=== PATIENT | male | born 1965 | race Caucasian/White ===

== ENCOUNTER 2017-12-23 11:41 | Inpatient (IN) | payer BC, OTHER ==
--- NOTE | 2017-12-23 12:17 | ER Document Report ---
ED General - General Chief Complaint: Dizziness Stated Complaint: BLOOD PRESSUER ISSUE Time Seen by Provider: 12/23/17 12:04 Mode of Arrival: Ambulatory Information source: Patient, Dr. Office Notes: 52 yr old male hx of htn who does not take his lisinopril presents with complaints of headache and high blood pressure . pt denies any fevers or chills , denies any nausea vomiting. pt notes that he was given 0.2 mg of clonidine and bp went from 208/124 TRAVEL OUTSIDE OF THE [place] IN LAST 30 DAYS: No - HPI Onset: Just prior to arrival Onset/Duration: Sudden Quality of pain: No pain Severity: Mild Pain Level: Denies Associated symptoms: Headache Exacerbated by: Denies Relieved by: Other Similar symptoms previously: Yes Recently seen / treated by doctor: Yes - Related Data Allergies/Adverse Reactions: diphenhydramine HCl [From Benadryl] Allergy (Verified 12/23/17 11:42) swelling and rash Past Medical History - Social History Smoking Status: Never Smoker Cigarette use (# per day): No Chew tobacco use (# tins/day): No Smoking Education Provided: No Family History: Hypertension - Past Medical History Cardiac Medical History: Reports: Hx Hypertension Traumatic Medical History: Reports: Hx Fractures - Right tib-fib fracture treated with a cast several years ago. Review of Systems - Review of Systems Notes: REVIEW OF SYSTEMS: CONSTITUTIONAL : Denies fever, chills, or sweats. Denies recent illness. EENT: Denies eye, ear, throat, or mouth pain or symptoms. Denies nasal or sinus congestion or discharge. Denies throat, tongue, or mouth swelling or difficulty swallowing. CARDIOVASCULAR: Denies chest pain. Denies palpitations or racing or irregular heart beat. Denies ankle edema. RESPIRATORY: Denies cough, cold, or chest congestion. Denies shortness of breath, difficulty breathing, or wheezing. GASTROINTESTINAL: Denies abdominal pain or distention. Denies nausea, vomiting , or diarrhea. Denies blood in vomitus, stools, or per rectum. Denies black, tarry stools. Denies constipation. GENITOURINARY: Denies difficulty urinating, painful urination, burning, frequency, blood in urine, or discharge. MUSCULOSKELETAL: Denies back or neck pain or stiffness. Denies joint pain or swelling. SKIN: Denies rash, lesions or sores. HEMATOLOGIC : Denies easy bruising or bleeding. LYMPHATIC: Denies swollen, enlarged glands. NEUROLOGICAL: admits to headache PSYCHIATRIC: Denies anxiety or stress. Denies depression, suicidal ideation, or homicidal ideation. ALL OTHER SYSTEMS REVIEWED AND NEGATIVE. Dictation was performed using [employer] voice recognition software PHYSICAL EXAMINATION: GENERAL: Well-appearing, well-nourished and in no acute distress. bp slightly elevated 148/80 HEAD: Atraumatic, normocephalic. EYES: Pupils equal round and reactive to light, extraocular movements intact, sclera anicteric, conjunctiva are normal. ENT: Nares patent, oropharynx clear without exudates. Moist mucous membranes. NECK: Normal range of motion, supple without lymphadenopathy LUNGS: Breath sounds clear to auscultation bilaterally and equal. No wheezes rales or rhonchi. HEART: Regular rate and rhythm without murmurs ABDOMEN: Soft, nontender, nondistended abdomen. No guarding, no rebound. No masses appreciated. Musculoskeletal: Normal range of motion, no pitting or edema. No cyanosis. NEUROLOGICAL: Cranial nerves grossly intact. Normal speech, normal gait. Normal sensory, motor exams PSYCH: Normal mood, normal affect. SKIN: Warm, Dry, normal turgor, no rashes or lesions noted. Physical Exam - Vital signs Vitals: Temp Pulse Resp BP Pulse Ox 97.7 F 61 16 147/80 H 99 12/23/17 11:57 12/23/17 11:57 12/23/17 11:57 12/23/17 11:57 12/23/17 11:57 Course - Re-evaluation Re-evalutation: 12/23/17 12:16 Patient has been instructed that he must continue taking his lisinopril as prescribed, I will perform CT head given the symptoms are much improved, lab work pending to determine if there is been any long-term issues secondary to his hypertension he will be given ophthalmology follow-up 12/23/17 12:55 Patient noted to have a subacute CVA will admit ot hospitaist 12/23/17 12:57 - Vital Signs Vital signs: Temp Pulse Resp BP Pulse Ox 97.7 F 61 16 147/80 H 99 12/23/17 11:57 12/23/17 11:57 12/23/17 11:57 07/03/18 11:57 12/23/17 11:57 - Laboratory Result Diagrams: 12/23/17 12:18 12/23/17 12:18 Laboratory results interpreted by me: 12/23/17 12:18 WBC 12.3 H Seg Neutrophils % 78.3 H Absolute Neutrophils 9.6 H Discharge - Discharge Clinical Impression: CVA (cerebral vascular accident) Qualifiers: CVA mechanism: unspecified Qualified Code(s): I63.9 - Cerebral infarction, unspecified Condition: Stable Disposition: ADMITTED OBSERVATION Admitting Provider: Hospitalist Unit Admitted: IMCU Referrals: JENIFER RODRIGUEZ FNP-C [Primary Care Provider] - Follow up as needed
[2017-12-23 12:42] LABS: ABSOLUTE BASOPHILS # (AUTO) 0.1 10^3/uL (0.0-0.2); ABSOLUTE EOSINOPHILS # (AUTO) 0.1 10^3/uL (0.0-0.6); ABSOLUTE MONOCYTES (AUTO) 0.5 10^3/uL (0.1-1.4); ABSOLUTE NEUT (AUTO) 9.6 10^3/uL (1.7-8.2); BASOPHILS % (AUTO) 0.8 % (0-2); EOSINOPHILS % (AUTO) 0.6 % (0-6); HEMATOCRIT 44.1 % (37.9-51.0); HEMOGLOBIN 15.3 g/dL (13.5-17.0); LYMPHOCYTES % (AUTO) 16.3 % (13-45); MEAN CORPUSCULAR HEMOGLOBIN 30.8 pg (27.0-33.4); MEAN CORPUSCULAR HGB CONC 34.7 g/dL (32.0-36.0); MEAN CORPUSCULAR VOLUME 89 fl (80-97); PLATELET COUNT 238 10^3/uL (150-450); RED BLOOD COUNT 4.96 10^6/uL (4.35-5.55); RED CELL DISTRIBUTION WIDTH 12.8 % (11.5-14.0); SEGMENTED NEUTROPHILS % (AUTO) 78.3 % (42-78); TOTAL CELLS COUNTED % (AUTO) 100 %; WHITE BLOOD COUNT 12.3 10^3/uL (4.0-10.5)
--- NOTE | 2017-12-23 12:53 | RADIOLOGY REPORT (SQ) ---
EXAM DESCRIPTION: CT HEAD WITHOUT COMPLETED DATE/TIME: 12/23/2017 12:38 pm REASON FOR STUDY: hypertension COMPARISON: None. TECHNIQUE: Axial images acquired through the brain without intravenous contrast. Images reviewed wi th bone, brain and subdural windows. Additional sagittal and coronal reconstructions were generated. Images stored on PACS. All CT scanners at this facility use dose modulation, iterative reconstruction, and/or weight based d osing when appropriate to reduce radiation dose to as low as reasonably achievable (ALARA). [facility]: Dose Right [facility]: CareDose [facility]: Dose Right [facility]: Teradose 4D [facility]: [employer] Systems RADIATION DOSE: CT Rad equipment meets quality standard of care and radiation dose reduction techniq ues were employed. CTDIvol: 53.2 mGy. DLP: 991 mGy-cm. mGy. LIMITATIONS: None. FINDINGS: VENTRICLES: Normal size and contour. CEREBRUM: Low attenuation in the inferior left temporal lobe and occipital lobe, with adjacent sulcal effacement, likely a subacute left [employer] infarct. Remainder of the cerebrum is otherwise unremarkable. CEREBELLUM: No masses. No hemorrhage. No alteration of density. No evidence for acute infarction. EXTRAAXIAL SPACES: No fluid collections. No masses. ORBITS AND GLOBE: No intra- or extraconal masses. Normal contour of globe without masses. CALVARIUM: No fracture. PARANASAL SINUSES: Diffuse inflammatory changes in the paranasal sinuses with multifocal mucous membr ane thickening an near complete opacification of the left maxillary sinus. SOFT TISSUES: No mass or hematoma. OTHER: No other significant finding. IMPRESSION: Subacute nonhemorrhagic infarct in the left temporal and occipital lobe, along the left posterior cerebral artery distribution. EVIDENCE OF ACUTE STROKE: NO. COMMENT: Quality ID # [id number]: Final reports with documentation of one or more dose reduction techniques (e.g., Automated exposure control, adjustment of the mA and/or kV according to patient size, use of iterative reconstruction technique) TECHNICAL DOCUMENTATION: JOB ID: [id number] [employer]- All Rights Reserved Reading location - IP/workstation name: [email or web address]
[2017-12-23 12:58] LABS: APPEARANCE,URINE CLEAR; BILIRUBIN,URINE NEGATIVE (NEGATIVE); COLOR,URINE STRAW; GLUCOSE, URINE >=500 mg/dL (NEGATIVE); KETONES,URINE NEGATIVE (NEGATIVE); LEUKOCYTE ESTERASE,URINE NEGATIVE (NEGATIVE); NITRITE,URINE NEGATIVE (NEGATIVE); PROTEIN,URINE 100 mg/dL (NEGATIVE); URINE SPECIFIC GRAVITY 1.029; UROBILINOGEN,URINE NEGATIVE mg/dL (<2.0)
[2017-12-23 13:09] LABS: ALANINE AMINOTRANSFERASE 24 U/L (21-72); ALBUMIN 4.1 g/dL (3.5-5.0); ALKALINE PHOSPHATASE 140 U/L (38-126); ANION GAP 12 (5-19); ASPARTATE AMINO TRANSFERASE 16 U/L (17-59); BILIRUBIN,DIRECT 0.4 mg/dL (0.0-0.4); BILIRUBIN,TOTAL 0.6 mg/dL (0.2-1.3); BLOOD UREA NITROGEN 16 mg/dL (7-20); CALCIUM 9.2 mg/dL (8.4-10.2); CARBON DIOXIDE 30 mmol/L (22-30); CHLORIDE 90 mmol/L (98-107); POTASSIUM 4.8 mmol/L (3.6-5.0); SODIUM 132.2 mmol/L (137-145)
[2017-12-23 13:38] LABS: GLUCOSE 585 mg/dL (75-110)
[2017-12-23] MEDS ORDERED: GLUCAGON,HUMAN RECOMB 1 MG INJ IM PRN (14:26)
[2017-12-23] MEDS ORDERED: DEXTROSE 50%-WATER 25 GM/50 ML DISP.SYRIN IV PRN ×2 (14:26)
[2017-12-23] MEDS ORDERED: LABETALOL HCL INJ 20 MG/4 ML DISP.SYRIN IV PRN (14:26)
[2017-12-23] MEDS ORDERED: DEXTROSE 40% GEL 15 GM TUBE PO PRN ×2 (14:26)
--- NOTE | 2017-12-23 15:28 | PDOC H&P ---
History of Present Illness Admission Date/PCP: 12/23/17 14:26 JENIFER RODRIGUEZ, GRADUATE TEACH[employer] EDUCATION-C History of Present Illness: ADRIÁN ALVA is a 52 year old male who says about 3 days ago he began to notice some trouble with his balance that was transient, and he also started noticing some problems with the vision of his right side. He said it was like he was seeing something in his visual field that was moving off to his right and he could track it with his eyes and watch it as it went. 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 He has also been complaining mainly of some sinus congestion and said he feels like if it breaks up all his problems would go away. He decided to go see his primary care provider today and apparently he had a blood pressure with a systolic over 200 and was given some clonidine and EMS was called to bring him to the hospital. He denies any other complaints. He has not had any slurring of his speech, no dysarthria, no trouble chewing or swallowing, no headache, no trouble walking, no trouble with using his hands or with sensation, no facial droop. He said he quit smoking about a month ago. He had a head CT done on the ER which showed a subacute stroke. It also showed that he had a blood sugar of almost 600. He denies any knowledge of being diabetic. He says he does drink a lot of soda. Past Medical History Cardiac Medical History: Reports: Hypertension Social History Information Source: Patient Occupation: vending route driver Smoking Status: Former Smoker - Quit 1 month ago Family History Family History: Reviewed & Not Pertinent, Hypertension Parental Family History Reviewed: No - Noncontributory Children Family History Reviewed: NA - Noncontributory Sibling(s) Family History Reviewed.: NA - Noncontributory Medication/Allergy Home Medications: Lisinopril [Prinivil 10 mg Tablet] 10 mg PO DAILY 12/23/17 Allergies/Adverse Reactions: diphenhydramine HCl [From Benadryl] Allergy (Verified 12/23/17 11:42) swelling and rash Review of Systems All systems: reviewed and no additional remarkable complaints except as stated - A 10 point review of systems was conducted with the patient was negative except as noted above in HPI Physical Exam Vital Signs: Temp Pulse Resp BP Pulse Ox 97.7 F 64 20 176/87 H 96 12/23/17 14:13 12/23/17 14:13 12/23/17 14:31 12/23/17 14:31 12/23/17 14:31 General appearance: PRESENT: no acute distress, cooperative, well-developed, well-nourished Head exam: PRESENT: atraumatic, normocephalic Eye exam: PRESENT: conjunctiva pink, EOMI, PERRLA. ABSENT: scleral icterus Ear exam: PRESENT: normal external ear exam Mouth exam: PRESENT: moist, neck supple, tongue midline Throat exam: ABSENT: post pharyngeal erythema, tonsillar erythema, tonsillar exudate, tonsillogmegaly Neck exam: ABSENT: carotid bruit, JVD, lymphadenopathy, thyromegaly Respiratory exam: PRESENT: clear to auscultation marco, unlabored. ABSENT: rales , rhonchi, wheezes Cardiovascular exam: PRESENT: RRR. ABSENT: diastolic murmur, rubs, systolic murmur Pulses: PRESENT: normal carotid pulses, normal radial pulses Vascular exam: PRESENT: normal capillary refill GI/Abdominal exam: PRESENT: normal bowel sounds, soft. ABSENT: distended, guarding, mass, organolmegaly, rebound, tenderness Rectal exam: PRESENT: deferred Extremities exam: PRESENT: full ROM. ABSENT: clubbing, pedal edema Musculoskeletal exam: PRESENT: ambulatory, normal inspection. ABSENT: deformity Neurological exam: PRESENT: alert, awake, oriented to person, oriented to place , oriented to time, CN II-XII grossly intact, normal gait. ABSENT: ataxia, motor sensory deficit Psychiatric exam: PRESENT: appropriate affect, normal mood Skin exam: PRESENT: dry, warm Results Laboratory Results: reviewed Impressions: Head CT 12/23/17 12:12 IMPRESSION: Subacute nonhemorrhagic infarct in the left temporal and occipital lobe, along the left posterior cerebral artery distribution. EVIDENCE OF ACUTE STROKE: NO. Assessment & Plan - Diagnosis (1) CVA (cerebral vascular accident) Qualifiers: CVA mechanism: unspecified Qualified Code(s): I63.9 - Cerebral infarction, unspecified Is this a current diagnosis for this admission?: Yes Plan: We will put him on aspirin and statin. Monitor him on telemetry. Have been seen by physical therapy occupational therapy and speech therapy. We will get an MRI of the brain along with MRA of the head and neck. We will get an echocardiogram. Check hemoglobin A1c and lipid panel. It sounds like the acute episode happened sometime ago and so I do not think we necessarily need to have permissive hypertension at this time because I think is well out of the 24-hour window. He does however have hypertension and so we need to modify this risk factor. Fortunately he does not have any substantial neurological deficits. We will continue to monitor him to make sure he does not develop any. (2) Hyperglycemia Is this a current diagnosis for this admission?: Yes Plan: We will check hemoglobin A1c. Insulin sliding scale and consistent carbohydrate diet. (3) Hypertensive urgency Is this a current diagnosis for this admission?: Yes Plan: He apparently is supposed to be on blood pressure medicine at home but his said he has not been taking it. Will try to find out what that medication was injected started. In the meantime we got some as needed labetalol ordered with parameters. - Time Time Spent: 50 to 70 Minutes Smoking Cessation Education: 3 to 10 minutes Medications reviewed and adjusted accordingly: Yes - Inpatient Certification Medical Necessity: Need Close Monitoring Due to Risk of Patient Decompensation, Need for Neurological Checks, Risk of Complication if Not Cared For in Hospital
[2017-12-23] MEDS: INSULIN REG, HUMAN 100 UNIT/ML 3 ML VIAL (PYX) SUBCUT PRN ×2 (16:11→21:41)
[2017-12-23] MEDS: ATORVASTATIN CALCIUM 80 MG TABLET PO SCH (21:22)
[2017-12-24 06:35] LABS: HEMOGLOBIN 14.6 g/dL (13.5-17.0); MEAN CORPUSCULAR HEMOGLOBIN 31.2 pg (27.0-33.4); MEAN CORPUSCULAR HGB CONC 35.7 g/dL (32.0-36.0); MEAN CORPUSCULAR VOLUME 87 fl (80-97); PLATELET COUNT 224 10^3/uL (150-450); RED BLOOD COUNT 4.69 10^6/uL (4.35-5.55); RED CELL DISTRIBUTION WIDTH 12.9 % (11.5-14.0); WHITE BLOOD COUNT 11.6 10^3/uL (4.0-10.5)
[2017-12-24 06:52] LABS: ANION GAP 12 (5-19); BLOOD UREA NITROGEN 21 mg/dL (7-20); CALCIUM 8.8 mg/dL (8.4-10.2); CARBON DIOXIDE 29 mmol/L (22-30); CHLORIDE 96 mmol/L (98-107); CHOLESTEROL 158.79 mg/dL (0-200); GLUCOSE 245 mg/dL (75-110); POTASSIUM 4.2 mmol/L (3.6-5.0); SODIUM 137.3 mmol/L (137-145); TRIGLYCERIDES 262 mg/dL (<150)
[2017-12-24 07:03] LABS: DIRECT LDL 94 mg/dL (<100)
[2017-12-24 07:28] LABS: VLDL CHOLESTEROL 52.4 mg/dL (10-31)
[2017-12-24] MEDS: INSULIN REG, HUMAN 100 UNIT/ML 3 ML VIAL (PYX) SUBCUT PRN ×3 (08:32→21:43)
[2017-12-24] MEDS: ASPIRIN 325 MG TABLET, ENT COATED PO SCH (09:49)
--- NOTE | 2017-12-24 11:00 | PDOC PROGRESS REPORT ---
Subjective Progress Note for:: 12/24/17 Subjective:: Patient was admitted with acute CVA. He presented with blurry vision. He was found to have poorly controlled diabetes as well as hypertensive urgency. He had been noncompliant with his medications. Patient admits to feeling much better today and states his symptoms of resolved with his vision clearing up. Reason For Visit: CEREBROVASCULAR ACCIDENT (CVA) Physical Exam Vital Signs: Temp Pulse Resp BP Pulse Ox 98.3 F 82 16 141/81 H 97 12/24/17 08:25 12/24/17 08:25 12/24/17 08:25 12/24/17 08:25 12/24/17 08:25 Intake & Output 12/23/17 12/24/17 12/25/17 06:59 06:59 06:59 Intake Total 363 Balance 363 Weight 56.4 kg General appearance: PRESENT: no acute distress, well-developed, well-nourished Head exam: PRESENT: atraumatic, normocephalic Eye exam: PRESENT: conjunctiva pink, EOMI, PERRLA. ABSENT: scleral icterus Ear exam: PRESENT: normal external ear exam Mouth exam: PRESENT: moist, tongue midline Neck exam: ABSENT: carotid bruit, JVD, lymphadenopathy, thyromegaly Respiratory exam: PRESENT: clear to auscultation marco. ABSENT: rales, rhonchi, wheezes Cardiovascular exam: PRESENT: RRR. ABSENT: diastolic murmur, rubs, systolic murmur Pulses: PRESENT: normal dorsalis pedis pul Vascular exam: PRESENT: normal capillary refill GI/Abdominal exam: PRESENT: normal bowel sounds, soft. ABSENT: distended, guarding, mass, organolmegaly, rebound, tenderness Rectal exam: PRESENT: deferred Extremities exam: PRESENT: full ROM. ABSENT: calf tenderness, clubbing, pedal edema Neurological exam: PRESENT: alert, awake, oriented to person, oriented to place , oriented to time, oriented to situation, CN II-XII grossly intact, other - mild left facial droop. ABSENT: motor sensory deficit Psychiatric exam: PRESENT: appropriate affect, normal mood. ABSENT: homicidal ideation, suicidal ideation Skin exam: PRESENT: dry, intact, warm. ABSENT: cyanosis, rash Results Laboratory Results: 12/24/17 05:29 12/24/17 05:29 12/24/17 12/24/17 05:29 05:29 WBC 11.6 H RBC 4.69 Hgb 14.6 Hct 41.0 MCV 87 MCH 31.2 MCHC 35.7 RDW 12.9 Plt Count 224 Sodium 137.3 Potassium 4.2 Chloride 96 L Carbon Dioxide 29 Anion Gap 12 BUN 21 H Creatinine 1.41 H Est GFR ( Amer) > 60 Est GFR (Non-Af Amer) 53 L Glucose 245 H Calcium 8.8 Triglycerides 262 H Cholesterol 158.79 LDL Cholesterol Direct 94 VLDL Cholesterol 52.4 H HDL Cholesterol 33 L Impressions: Head CT 12/23/17 12:12 IMPRESSION: Subacute nonhemorrhagic infarct in the left temporal and occipital lobe, along the left posterior cerebral artery distribution. EVIDENCE OF ACUTE STROKE: NO. Assessment & Plan - Time Time Spent with patient: 15-24 minutes Medications reviewed and adjusted accordingly: Yes Anticipated discharge: Home Within: within 24 hours - Inpatient Certification Based on my medical assessment, after consideration of the patient's comorbidities, presenting symptoms, or acuity I expect that the services needed warrant INPATIENT care.: Yes Medical Necessity: Need Close Monitoring Due to Risk of Patient Decompensation - Plan Summary Plan Summary: P Sub-acute cerebrovascular accident in the left temporal and occipital lobe along the left posterior cerebral artery distribution. He has been started on aspirin as well as statin. There appears to be no residual deficits. Patient says he has partial dentures accounting for his lop-sided facial droop 2-dimensional echocardiogram as well as carotid Doppler studies are still pending and this needs to be obtained prior to patient discharge 2. Hypertensive urgency due to noncompliance. His blood pressure is improved today. He has been advised of the need to be compliant with his medications 3. Type 2 diabetes mellitus-hemoglobin A1c was 11.7. Patient had been advised of the need to be compliant with his medications 4. Dyslipidemia with triglyceride level of 262 he will need to dietary as well as medication control. 5. Medication noncompliance
--- NOTE | 2017-12-24 12:21 | RADIOLOGY REPORT (SQ) ---
EXAM DESCRIPTION: MRI HEAD WITHOUT; MRA HEAD WITHOUT COMPLETED DATE/TIME: 12/24/2017 12:07 pm; 12/24/2017 11:22 am REASON FOR STUDY: acute ischemic CVA COMPARISON: CT brain 12/23/2017 TECHNIQUE: Multiplanar imaging includes non-contrasted T1, T2, FLAIR, and diffusion with ADC map seq uences. Images stored on PACS. On contrasted [place] was performed with 3D [id number] acquisition. Source data and max imum intensity projected images were reviewed. LIMITATIONS: None. FINDINGS: ANATOMY: No anomalies. Normal vascular flow voids. Pituitary fossa normal. CSF SPACES: Normal in size and contour. No hemorrhage. CEREBRUM: A subacute nonhemorrhagic inferior left temporal lobe infarct is present, best shown on axi al T2 image 13, coronal T2 images 18-25, and axial FLAIR image 10. This has minimal residual altered diffusion signal. Old lacunar infarct left thalamus. Remainder of the cerebral hemispheres are unremarkable. POSTERIOR FOSSA: No signal alteration. No hemorrhage. No edema, masses or mass effect. Internal trent tory canals, cerebello-pontine angles, mastoids normal. DIFFUSION IMAGING: Negative for acute or sub-acute infarction. ORBITS: Extensive inflammatory change with bulky mucous membrane thickening in the bilateral maxillar y sinuses, left ethmoid, left frontal, and left sphenoid sinus PARANASAL SINUSES: No fluid levels. Mucosa normal. [place] MRA: No [place] stenosis, vascular malformation, or aneurysm. Flow is iden tified in the bilateral posterior cerebral arteries. IMPRESSION: Subacute infarct left inferior temporal lobe Old lacunar infarct left thalamus Unremarkable [place] MRA EVIDENCE OF ACUTE STROKE: NO, subacute nonhemorrhagic left temporal lobe infarct. TECHNICAL DOCUMENTATION: JOB ID: [id number]- All Rights Reserved Reading location - IP/workstation name: [email or web address]
--- NOTE | 2017-12-24 12:21 | RADIOLOGY REPORT (SQ) ---
EXAM DESCRIPTION: MRI HEAD WITHOUT; MRA HEAD WITHOUT COMPLETED DATE/TIME: 12/24/2017 12:07 pm; 12/24/2017 11:22 am REASON FOR STUDY: acute ischemic CVA COMPARISON: CT brain 12/23/2017 TECHNIQUE: Multiplanar imaging includes non-contrasted T1, T2, FLAIR, and diffusion with ADC map seq uences. Images stored on PACS. On contrasted [place] was performed with 3D [id number] acquisition. Source data and max imum intensity projected images were reviewed. LIMITATIONS: None. FINDINGS: ANATOMY: No anomalies. Normal vascular flow voids. Pituitary fossa normal. CSF SPACES: Normal in size and contour. No hemorrhage. CEREBRUM: A subacute nonhemorrhagic inferior left temporal lobe infarct is present, best shown on axi al T2 image 13, coronal T2 images 18-25, and axial FLAIR image 10. This has minimal residual altered diffusion signal. Old lacunar infarct left thalamus. Remainder of the cerebral hemispheres are unremarkable. POSTERIOR FOSSA: No signal alteration. No hemorrhage. No edema, masses or mass effect. Internal trent tory canals, cerebello-pontine angles, mastoids normal. DIFFUSION IMAGING: Negative for acute or sub-acute infarction. ORBITS: Extensive inflammatory change with bulky mucous membrane thickening in the bilateral maxillar y sinuses, left ethmoid, left frontal, and left sphenoid sinus PARANASAL SINUSES: No fluid levels. Mucosa normal. [place] MRA: No [place] stenosis, vascular malformation, or aneurysm. Flow is iden tified in the bilateral posterior cerebral arteries. IMPRESSION: Subacute infarct left inferior temporal lobe Old lacunar infarct left thalamus Unremarkable [place] MRA EVIDENCE OF ACUTE STROKE: NO, subacute nonhemorrhagic left temporal lobe infarct. TECHNICAL DOCUMENTATION: JOB ID: [id number]- All Rights Reserved Reading location - IP/workstation name: [email or web address]
[2017-12-24] MEDS: ATORVASTATIN CALCIUM 80 MG TABLET PO SCH (21:00)
[2017-12-25 06:22] LABS: HEMATOCRIT 43.8 % (37.9-51.0); HEMOGLOBIN 15.4 g/dL (13.5-17.0); MEAN CORPUSCULAR HEMOGLOBIN 30.8 pg (27.0-33.4); MEAN CORPUSCULAR HGB CONC 35.1 g/dL (32.0-36.0); MEAN CORPUSCULAR VOLUME 88 fl (80-97); PLATELET COUNT 223 10^3/uL (150-450); RED CELL DISTRIBUTION WIDTH 12.9 % (11.5-14.0); WHITE BLOOD COUNT 11.5 10^3/uL (4.0-10.5)
[2017-12-25 06:43] LABS: ANION GAP 10 (5-19); BLOOD UREA NITROGEN 25 mg/dL (7-20); CALCIUM 9.2 mg/dL (8.4-10.2); CARBON DIOXIDE 31 mmol/L (22-30); CHLORIDE 99 mmol/L (98-107); GLUCOSE 210 mg/dL (75-110); POTASSIUM 4.5 mmol/L (3.6-5.0); SODIUM 139.5 mmol/L (137-145)
[2017-12-25] MEDS: INSULIN REG, HUMAN 100 UNIT/ML 3 ML VIAL (PYX) SUBCUT PRN ×2 (10:06→13:02)
[2017-12-25] MEDS: ASPIRIN 325 MG TABLET, ENT COATED PO SCH (10:08)
[2017-12-25] MEDS ORDERED: LISINOPRIL 10 MG TABLET PO ONE (15:40)
--- NOTE | 2017-12-25 15:43 | PDOC DISCHARGE SUMMARY ---
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 Follow-up with PCP close monitoring and referral to [facility] - Additional Information Discharge Diet: Cardiac, Diabetic Discharge Activity: Activity As Tolerated Prescriptions: Atorvastatin Calcium [Lipitor 80 mg Tablet] 80 mg PO QHS #30 tablet Insulin Glargine,Hum.rec.anlog [Lantus Solostar] 10 unit SQ BIDPCBS #3 insuln.pen Insulin Lispro [Humalog Insulin 100 Unit/1 ml 3 ml Vial] 3 unit SUBCUT AC #10 ml Lisinopril [Prinivil 10 mg Tablet] 20 mg PO DAILY 30 Days tablet Pen Needle, Diabetic [Insulin Pen Needle] 1 each MC ASDIR PRN #100 dis.needle PRN Reason: Home Medications: Aspirin [Ecotrin 325 mg EC Tablet] 325 mg PO DAILY tabec 12/25/17 Atorvastatin Calcium [Lipitor 80 mg Tablet] 80 mg PO QHS #30 tablet 12/25/17 Insulin Glargine,Hum.rec.anlog [Lantus Solostar] 10 unit SQ BIDPCBS #3 insuln.pen 12/25/17 Insulin Lispro [Humalog Insulin 100 Unit/1 ml 3 ml Vial] 3 unit SUBCUT AC #10 ml 12/25/17 Lisinopril [Prinivil 10 mg Tablet] 20 mg PO DAILY 30 Days tablet 12/25/17 Pen Needle, Diabetic [Insulin Pen Needle] 1 each MC ASDIR PRN #100 dis.needle History of Present Illness Patient complains of: Patient was admitted with unsteady gait and blurred vision History of Present Illness: ADRIÁN ALVA is a 52 year old male who says about 3 days ago he began to notice some trouble with his balance that was transient, and he also started noticing some problems with the vision of his right side. He said it was like he was seeing something in his visual field that was moving off to his right and he could track it with his eyes and watch it as it went. 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 He has also been complaining mainly of some sinus congestion and said he feels like if it breaks up all his problems would go away. He decided to go see his primary care provider today and apparently he had a blood pressure with a systolic over 200 and was given some clonidine and EMS was called to bring him to the hospital. He denies any other complaints. He has not had any slurring of his speech, no dysarthria, no trouble chewing or swallowing, no headache, no trouble walking, no trouble with using his hands or with sensation, no facial droop. He said he quit smoking about a month ago. He had a head CT done on the ER which showed a subacute stroke. It also showed that he had a blood sugar of almost 600. He denies any knowledge of being diabetic. He says he does drink a lot of soda Hospital Course Hospital Course: Patient was admitted with unsteady gait and blurred vision. He was found to have a subacute CVA on presentation to the ER. Patient's blood pressure was also found to be poorly controlled with a systolic over 200. His initial blood sugar was more than 600 and patient apparently had no prior history of diabetes hypertension hypertension Physical Exam Vital Signs: Temp Pulse Resp BP Pulse Ox 98.3 F 101 H 16 151/97 H 99 12/25/17 12:29 12/25/17 12:29 12/25/17 12:29 12/25/17 12:29 12/25/17 12:29 Intake & Output 12/24/17 12/25/17 12/26/17 06:59 06:59 06:59 Intake Total 363 442 Balance 363 442 Weight 56.4 kg 56 kg General appearance: PRESENT: no acute distress, well-developed Head exam: PRESENT: atraumatic, normocephalic Eye exam: PRESENT: conjunctiva pink, EOMI, PERRLA. ABSENT: scleral icterus Ear exam: PRESENT: normal external ear exam Mouth exam: PRESENT: moist, tongue midline Neck exam: ABSENT: carotid bruit, JVD, lymphadenopathy, thyromegaly Respiratory exam: PRESENT: clear to auscultation marco. ABSENT: rales, rhonchi, wheezes Cardiovascular exam: PRESENT: RRR. ABSENT: diastolic murmur, rubs, systolic murmur Pulses: PRESENT: normal dorsalis pedis pul Vascular exam: PRESENT: normal capillary refill GI/Abdominal exam: PRESENT: normal bowel sounds, soft. ABSENT: distended, guarding, mass, organolmegaly, rebound, tenderness Rectal exam: PRESENT: deferred Extremities exam: PRESENT: full ROM. ABSENT: calf tenderness, clubbing, pedal edema Neurological exam: PRESENT: alert, awake, oriented to person, oriented to place , oriented to time, oriented to situation, CN II-XII grossly intact. ABSENT: motor sensory deficit Psychiatric exam: PRESENT: appropriate affect, normal mood. ABSENT: homicidal ideation, suicidal ideation Skin exam: PRESENT: dry, intact, warm. ABSENT: cyanosis, rash Results Laboratory Results: 12/25/17 05:18 12/25/17 05:18 12/25/17 12/25/17 05:18 05:18 WBC 11.5 H RBC 5.00 Hgb 15.4 Hct 43.8 MCV 88 MCH 30.8 MCHC 35.1 RDW 12.9 Plt Count 223 Sodium 139.5 Potassium 4.5 Chloride 99 Carbon Dioxide 31 H Anion Gap 10 BUN 25 H Creatinine 1.43 H Est GFR ( Amer) > 60 Est GFR (Non-Af Amer) 52 L Glucose 210 H Calcium 9.2 Impressions: Head MRI 12/23/17 00:00 IMPRESSION: Subacute infarct left inferior temporal lobe Old lacunar infarct left thalamus Unremarkable citizen [place] MRA EVIDENCE OF ACUTE STROKE: NO, subacute nonhemorrhagic left temporal lobe infarct. Head CT 12/23/17 12:12 IMPRESSION: Subacute nonhemorrhagic infarct in the left temporal and occipital lobe, along the left posterior cerebral artery distribution. EVIDENCE OF ACUTE STROKE: NO. Brain MRI with MRA 12/23/17 14:23 IMPRESSION: Subacute infarct left inferior temporal lobe [place] infarct left thalamus Unremarkable [place] MRA EVIDENCE OF ACUTE STROKE: NO, subacute nonhemorrhagic left temporal lobe infarct. Qualifiers - * PATIENT BEING DISCHARGED WITH ANY OF THE FOLLOWING DIAGNOSIS: Stroke Stroke Pt being discharged on Anti-thrombolytic therapy?: Yes Stroke Pt being discharged on Anti-coagulation therapy?: No Reason(s) for not prescribing Anti-coagulation therapy:: Not indicated Stroke Pt being discharged on Statins?: Yes Plan Time Spent: Greater than 30 Minutes
--- NOTE | 2017-12-25 16:28 | XCELERA REPORT ---
[address] [address] Transthoracic Echocardiogram Report Name: ADRIÁN ALVA Age: 52 yrs Gender: Male : 1965 Patient Status: Inpatient Patient Location: [address] [place] [address] Study Date: 12/25/2017 10:29 AM Height: 62 in Weight: 123 lb BSA: 1.6 m2 Procedure: A two-dimensional transthoracic echocardiogram with color flow and Doppler was performed. The study was technically difficult with many images being suboptimal in quality. Reason For Study: CVA History: CVA. Ordering Physician: JAN CURTIS Performed By: Ruth Ann Nunez Interpretation Summary There is no obvious cardiac source of embolus noted on this transthoracic echocardiogram. Follow-up with a MANGO is suggested if cardiac source is still suspected. The left ventricle is normal in size. There is normal left ventricular wall thickness. LV EF is > than 60% Left ventricular systolic function is low normal. Doppler measurements suggest impaired left ventricular relaxation, which is associated with grade I/IV or mild diastolic dysfunction The left ventricular wall motion is normal. There is no thrombus. The right ventricle is grossly normal size. The right ventricle is not well visualized secondary to technical limitations The right atrium is normal. The left atrial size is normal. There is no evidence of mitral valve prolapse. There is no vegetation seen on the mitral valve. There is no mitral valve stenosis. There is no mitral regurgitation noted. There is no aortic valve stenosis There is no LVOT obstruction. No aortic regurgitation is present. There is no tricuspid stenosis. No tricuspid regurgitation. Unable to calculate RVSP due to lack of TR jet. There is no pericardial effusion. There is no obvious cardiac source of embolus noted on this transthoracic echocardiogram. Follow-up with a MANGO is suggested if cardiac source is still suspected MMode/2D Measurements & Calculations RVDd: 2.1 cm LVIDd: 3.3 cm FS: 41.2 % Ao root diam: 2.6 cm IVSd: 0.79 cm LVIDs: 1.9 cm EDV(Teich): 44.5 ml LVPWd: 0.80 cm ESV(Teich): 11.9 ml Ao root area: 5.3 cm2 EF(Teich): 73.3 % LA dimension: 2.4 cm Doppler Measurements & Calculations MV E max lester: MV P1/2t max lester: Ao V2 max: LV V1 max P.0 cm/sec 76.0 cm/sec 126.4 cm/sec 3.0 mmHg MV A max lester: MV P1/2t: 70.3 msec Ao max PG: LV V1 max: 95.8 cm/sec 6.4 mmHg 85.9 cm/sec MV E/A: 0.79 MVA(P1/2t): 3.1 cm2 MV dec slope: 316.5 cm/sec2 MV dec time: 0.23 sec PA V2 max: 107.1 cm/sec PA max P.6 mmHg Left Ventricle The left ventricle is normal in size. There is normal left ventricular wall thickness. LV EF is > than 60%. Left ventricular systolic function is low normal. Doppler measurements suggest impaired left ventricular relaxation, which is associated with grade I/IV or mild diastolic dysfunction. The left ventricular wall motion is normal. There is no thrombus. Right Ventricle The right ventricle is grossly normal size. The right ventricle is not well visualized secondary to technical limitations. Atria The right atrium is normal. The left atrial size is normal. Mitral Valve There is no evidence of mitral valve prolapse. There is no vegetation seen on the mitral valve. There is no mitral valve stenosis. There is no mitral regurgitation noted. Aortic Valve There is no aortic valvular vegetation. There is no aortic valve stenosis. There is no LVOT obstruction. No aortic regurgitation is present. Tricuspid Valve There is no tricuspid stenosis. No tricuspid regurgitation. Unable to calculate RVSP due to lack of TR jet. Pulmonic Valve There is no pulmonic valvular stenosis. There is no pulmonic valvular regurgitation. Great Vessels The aortic root is not well visualized. Effusions There is no pericardial effusion. : JAN CURTIS > Iris Hernández
[2017-12-25 16:34] VITALS: BP 140/72
== END 2017-12-25 17:43 | disposition home or self-care (01) | DRG 66 ==
LOC: ER 11:41 → OBSVTOIN 14:26 → EH 14:26 → 3S 17:09
PROVIDERS: ADMIT Internal Medicine; ATTEND Internal Medicine
DX: I63.9 Cerebral infarction, unspecified (principal); I12.9 Hypertensive chronic kidney disease with stage 1 through stage 4 chronic kidney disease, or unspecified chronic kidney disease; N18.3 Chronic kidney disease, stage 3 (moderate); E11.22 Type 2 diabetes mellitus with diabetic chronic kidney disease; H53.8 Other visual disturbances; R26.81 Unsteadiness on feet; E11.65 Type 2 diabetes mellitus with hyperglycemia; I16.0 Hypertensive urgency; E78.00 Pure hypercholesterolemia, unspecified; Z79.4 Long term (current) use of insulin; Z79.899 Other long term (current) drug therapy; Z87.891 Personal history of nicotine dependence; Z82.49 Family history of ischemic heart disease and other diseases of the circulatory system; Z88.8 Allergy status to other drugs, medicaments and biological substances; Z91.14 Patient's other noncompliance with medication regimen
CPT/HCPCS: 36415; 70450; 70544; 70551; 80048; 80053; 80061; 81001; 82962; 83036; 85025; 85027; 93306; 99285; J1815; J3490

== ENCOUNTER 2018-12-12 21:03 | Emergency (ER) | payer BC ==
[2018-12-12] MEDS ORDERED: METHYLPREDNISOLONE INJ 125 MG/2 ML SDV IV ONE (21:28)
[2018-12-12] MEDS ORDERED: FAMOTIDINE INJ/PF 20 MG/2 ML SDV IV ONE ×2 (21:28→23:19)
[2018-12-12] MEDS ORDERED: NORMAL SALINE 1000 ML 1,000 ML IV ONE (21:31)
[2018-12-12] MEDS ORDERED: EPINEPHRINE INJ/PF 1 MG/1 ML AMPULE IM ONE (21:35)
[2018-12-12] MEDS ORDERED: EPINEPHRINE INJ/PF 1 MG/1 ML AMPULE ONE (21:36)
--- NOTE | 2018-12-12 21:38 | ER Document Report ---
ED Allergic Reaction - General Chief Complaint: Hives Stated Complaint: HIVES Time Seen by Provider: 12/12/18 21:28 Primary Care Provider: Robert REEVES MD [ACTIVE STAFF] - Follow up in 1 week JENIFER RODRIGUEZ FNP-C [COMMUNITY BASED STAFF] - Follow up in 3-5 days Notes: Patient is a 53-year-old male who presents the emergency department with hives. He was in the lobby and someone he was possibly having a seizure and he was rushed to the trauma bay. Patient was stung by bees around 930 this morning. Started noticing that he had hives and when he was in the lobby he felt lightheaded. Past medical history includes CVA, hypertension, hyperlipidemia. TRAVEL OUTSIDE OF THE [place] IN LAST 30 DAYS: No - Related Data Allergies/Adverse Reactions: diphenhydramine HCl [From Benadryl] Allergy (Verified 12/23/17 11:42) swelling and rash Past Medical History - Social History Smoking Status: Current Every Day Smoker Family History: Reviewed & Not Pertinent, Hypertension - Past Medical History Cardiac Medical History: Reports: Hx Hypertension Renal/ Medical History: Denies: Hx Peritoneal Dialysis Traumatic Medical History: Reports: Hx Fractures - Right tib-fib fracture treated with a cast several years ago. Review of Systems - Review of Systems Notes: REVIEW OF SYSTEMS: CONSTITUTIONAL : Denies recent illness. Denies recent unintentional weight loss. Denies fever, chills, or sweats. EENT: Denies eye, ear, throat, or mouth pain, discharge, or symptoms. Denies nasal or sinus congestion. CARDIOVASCULAR: Denies chest pain. RESPIRATORY: Denies shortness of breath, cough, congestion, difficulty breathing, or wheezing. GASTROINTESTINAL: Denies nausea, vomiting, and diarrhea. Denies abdominal pain. Denies constipation. GENITOURINARY: Denies difficulty urinating, burning, blood in urine, urgency or frequency. MUSCULOSKELETAL: Denies neck and back pain. Denies joint pain or swelling. SKIN: Denies rash, itchiness, or lesions HEMATOLOGIC : Denies easy bruising or bleeding. LYMPHATIC: Denies swollen, painful, enlarged glands. NEUROLOGICAL: Denies no numbness or tingling denies weakness. Denies headache. Denies altered mental status. Denies alteration in speech. PSYCHIATRIC: Denies stress, anxiety, alteration in sleep patterns, or depression. All other systems reviewed and negative. Physical Exam - Vital signs Vitals: Temp Pulse Resp BP Pulse Ox 97.6 F 99 20 93/47 L 95 12/12/18 21:07 12/12/18 21:07 12/12/18 21:07 12/12/18 21:07 12/12/18 21:07 - Notes Notes: PHYSICAL EXAMINATION: GENERAL: Appears well, healthy, well-nourished, no acute distress. HEAD: Normocephalic, atraumatic. EYES: PERRL, conjunctiva normal, all extraocular movements intact, sclera nonicteric ENT: Moist mucous membranes. NECK: Supple, no noticeable swelling, redness, rash. Normal range of motion. LUNGS: Equal breath sounds bilaterally and clear to auscultation. No wheezes rales or rhonchi. CARDIOVASCULAR: S1-S2, regular rate, regular rhythm. Radial pulses 2+, normal. ABDOMEN: Normoactive bowel sounds. Soft, nontender, no guarding, no rebound tenderness, and no masses palpated. EXTREMITIES: Normal strength and range of motion, no pitting or edema. No cyanosis. NEUROLOGICAL: Moves all extremities upon command. Strength 5/5 in all extremities. PSYCH: Normal mood, normal affect. SKIN: Warm, dry. Urticaria noted. Course - Re-evaluation Re-evalutation: 12/12/18 21:30 Patient arrived to the trauma bay appearing pale. He has urticaria noted all over his body. He has 5 out of 5 strength in all extremities. No postictal state noted. I have a low suspicion for the patient actually having a true seizure. He may have gotten lightheaded and had a syncopal episode. EKG is normal. He will receive Pepcid since he is allergic to Benadryl. He will also receive a dose of Solu-Medrol and epinephrine. 12/12/18 23:00 The patient is resting comfortably in bed. He also has improvement in his urticaria. He will receive another dose of Pepcid here in the emergency department to make a total of 40 mg given. 12/13/18 00:02 I have reassessed the patient and the patient's urticaria is almost completely gone. He has good color to his face now. His blood pressure is a little lower, but he states he took his blood pressure medication at 1800 tonight. At this time the patient will be discharged with an EpiPen. He will follow-up with his primary care provider in regards to this visit. Patient does have chronic kidney disease, and is followed by Dr. Reeves. Follow-up precautions were given. Verbal discharge instructions were given to the patient. They verbalized understanding. They are stable for discharge. - Vital Signs Vital signs: Temp Pulse Resp BP Pulse Ox 98.6 F 99 19 85/52 L 94 12/13/18 00:30 12/12/18 21:07 12/13/18 00:30 12/13/18 00:30 12/13/18 00:30 - Laboratory Result Diagrams: 12/12/18 21:29 12/12/18 21:29 Laboratory results interpreted by me: 12/12/18 12/12/18 12/12/18 21:29 21:29 21:30 WBC 13.1 H Sodium 135.4 L BUN 23 H Creatinine 1.59 H Est GFR ( Amer) 55 L Est GFR (Non-Af Amer) 46 L Glucose 166 H POC Glucose 184 H Total Protein 5.9 L - EKG Interpretation by Me Additional EKG results interpreted by me: 12/13/18 00:17 Sinus bradycardia. Rate 58. LA 136; QRS 86; QT 400; QTc 393. No ST elevations or depressions noted Discharge - Discharge Clinical Impression: Allergic reaction Qualifiers: Encounter type: initial encounter Qualified Code(s): T78.40XA - Allergy, unspecified, initial encounter Condition: Stable Disposition: HOME, SELF-CARE Additional Instructions: You are seen today in the emergency department for an allergic reaction to bees. You are being sent home with an EpiPen. Please keep this with you at all times. If you feel like you are going to have an allergic reaction, use the EpiPen and go to the emergency department immediately. Please continue to take Pepcid 20 mg twice a day to help with your rash. If you develop shortness of breath, difficulty breathing or have any symptoms that are worrisome to you, please return to the emergency department. Prescriptions: Epinephrine [Epipen] 0.3 mg IJ ASDIR PRN #1 auto.injct PRN Reason: Famotidine [Pepcid 20 mg Tablet] 20 mg PO BID #12 tablet Referrals: MICHAEL,JENIFER B, [employer]-C [COMMUNITY BASED STAFF] - Follow up in 3-5 days Robert REEVES MD [ACTIVE STAFF] - Follow up in 1 week
[2018-12-12 21:45] LABS: ABSOLUTE BASOPHILS # (AUTO) 0.1 10^3/uL (0.0-0.2); ABSOLUTE EOSINOPHILS # (AUTO) 0.1 10^3/uL (0.0-0.6); ABSOLUTE LYMPHOCYTES (AUTO) 4.2 10^3/uL (0.5-4.7); ABSOLUTE MONOCYTES (AUTO) 0.6 10^3/uL (0.1-1.4); ABSOLUTE NEUT (AUTO) 8.1 10^3/uL (1.7-8.2); BASOPHILS % (AUTO) 0.5 % (0-2); HEMATOCRIT 46.8 % (37.9-51.0); HEMOGLOBIN 16.3 g/dL (13.5-17.0); LYMPHOCYTES % (AUTO) 31.9 % (13-45); MEAN CORPUSCULAR HEMOGLOBIN 31.9 pg (27.0-33.4); MEAN CORPUSCULAR HGB CONC 34.7 g/dL (32.0-36.0); MEAN CORPUSCULAR VOLUME 92 fl (80-97); MONOCYTES % (AUTO) 4.7 % (3-13); PLATELET COUNT 248 10^3/uL (150-450); RED CELL DISTRIBUTION WIDTH 13.2 % (11.5-14.0); SEGMENTED NEUTROPHILS % (AUTO) 61.9 % (42-78); TOTAL CELLS COUNTED % (AUTO) 100 %; WHITE BLOOD COUNT 13.1 10^3/uL (4.0-10.5)
[2018-12-12 22:10] LABS: ALANINE AMINOTRANSFERASE 24 U/L (21-72); ALBUMIN 3.8 g/dL (3.5-5.0); ALKALINE PHOSPHATASE 88 U/L (38-126); ANION GAP 8 (5-19); ASPARTATE AMINO TRANSFERASE 19 U/L (17-59); BILIRUBIN,DIRECT 0.2 mg/dL (0.0-0.4); BILIRUBIN,TOTAL 0.6 mg/dL (0.2-1.3); BLOOD UREA NITROGEN 23 mg/dL (7-20); CALCIUM 9.2 mg/dL (8.4-10.2); CARBON DIOXIDE 25 mmol/L (22-30); CHLORIDE 102 mmol/L (98-107); GLUCOSE 166 mg/dL (75-110); POTASSIUM 4.2 mmol/L (3.6-5.0); SODIUM 135.4 mmol/L (137-145); TOTAL PROTEIN 5.9 g/dL (6.3-8.2)
[2018-12-13 00:45] VITALS: BP 85/52
--- NOTE | 2018-12-13 09:28 | EKG REPORT ---
SEVERITY:- NORMAL ECG - SINUS BRADYCARDIA ST ELEV, PROBABLE NORMAL EARLY REPOL PATTERN : Confirmed by: Iris Hernández MD 13-Dec-2018 09:27:37
== END 2018-12-13 00:45 | disposition home or self-care (01) ==
LOC: ER 21:03
DX: T63.441A Toxic effect of venom of bees, accidental (unintentional), initial encounter (principal); L50.9 Urticaria, unspecified; R42 Dizziness and giddiness; I12.9 Hypertensive chronic kidney disease with stage 1 through stage 4 chronic kidney disease, or unspecified chronic kidney disease; N18.9 Chronic kidney disease, unspecified; R00.1 Bradycardia, unspecified; F17.200 Nicotine dependence, unspecified, uncomplicated; Z88.8 Allergy status to other drugs, medicaments and biological substances; Z79.899 Other long term (current) drug therapy
CPT/HCPCS: 93005; 96376; 99283; 96361; 96374; 96375; 36415; 82962; 85025; 80053; 93010; J0171; J2930; J7030; S0028